=== PATIENT | female | born 1940 | race Caucasian/White ===

== ENCOUNTER 2023-05-03 14:14 | Emergency (ER) | payer MEDICARE, OTHER ==
[~2023-05-03] VITALS: Ht 157.5 cm; Wt 59.7 kg
[2023-05-03 17:07] LABS: BASOPHILS # (AUTO) 0.1 X10'3 (0-0.2); BASOPHILS % (AUTO) 0.9 % (0-1); EOSINOPHILS # (AUTO) 0.4 X10'3 (0-0.9); EOSINOPHILS % (AUTO) 4.4 % (0-6); HEMATOCRIT 42.7 % (35.0-45.0); HEMOGLOBIN 14.1 g/dl (12.0-16.0); LYMPHOCYTES # (AUTO) 2.7 X10'3 (1.1-4.8); LYMPHOCYTES % (AUTO) 33.2 % (21-51); MEAN CORPUSCULAR HEMOGLOBIN 30.7 PG (27.0-31.0); MEAN PLATELET VOLUME 7.7 FL (7.4-10.4); MONOCYTES # (AUTO) 0.6 X10'3 (0-0.9); MONOCYTES % (AUTO) 7.1 % (2-12); NEUTROPHILS # (AUTO) 4.5 X10'3 (1.8-7.7); NEUTROPHILS % (AUTO) 54.4 % (42-75); PLATELET COUNT 311 X10'3 (140-440); RED BLOOD COUNT 4.59 X10'6 (4.20-5.60); WHITE BLOOD COUNT 8.2 X10'3 (4.5-11.0)
[2023-05-03 17:30] LABS: ALANINE AMINOTRANSFERASE 27 U/L (12-78); ALBUMIN 4.2 G/DL (3.4-5.0); ALBUMIN/GLOBULIN RATIO 0.9 (1.1-1.5); ALKALINE PHOSPHATASE 83 IU/L (46-116); ANION GAP 9 (8-16); ASPARTATE AMINO TRANSFERASE 28 U/L (10-37); BILIRUBIN,TOTAL 0.3 MG/DL (0.1-1.0); BLOOD UREA NITROGEN 20 MG/DL (7-18); BUN/CREATININE RATIO 16.4 (10.0-20.0); CALCIUM 9.9 MG/DL (8.5-10.1); CHLORIDE 100 MMOL/L (99-107); CREATININE 1.22 MG/DL (0.40-0.90); GLUCOSE 105 MG/DL (70-104); POTASSIUM 4.1 MMOL/L (3.5-5.1); SODIUM 140 MMOL/L (135-145); TOTAL CARBON DIOXIDE 31.2 MMOL/L (24-32); TOTAL PROTEIN 8.8 G/DL (6.4-8.2); eCRCL 27 ML/MIN; eGFR 42 ML/MIN
[2023-05-03 20:19] LABS: BILIRUBIN,URINE NEGATIVE (Neg); CLARITY,URINE SLIGHTLY CLOUDY (Clear); COLOR,URINE YELLOW (Yellow); GLUCOSE, URINE NEGATIVE (Neg); KETONES,URINE NEGATIVE (Neg); LEUKOCYTE ESTERASE ,URINE SMALL (Neg); NITRITES, URINE POSITIVE (Neg); OCCULT BLOOD,URINE NEGATIVE (Neg); PH,URINE 5.5 (4.8-8.0); PROTEIN,URINE NEGATIVE (Neg); UROBILINOGEN,URINE 0.2 E.U/dL (0.2-1.0)
[2023-05-03 20:26] LABS: UA COLLECTION TYPE CLN CATCH MIDSTREAM
[2023-05-03 20:28] LABS: BACTERIA,URINE 4+ /HPF (Neg); MUCUS STRANDS FEW /LPF (Neg); RBC,URINE 0-2 /HPF (0-2); SQUAMOUS EPITHELIAL CELL,UR FEW /LPF (FEW)
[2023-05-03 20:29] LABS: URIC ACID CRYSTALS FEW /HPF (NEGATIVE); WBC CLUMPS,URINE FEW /HPF (NEGATIVE); YEAST FEW /HPF (NEGATIVE)
[2023-05-03] MEDS ORDERED: CefTRIAXone/D5W-Rocephin 1gm 50 ML IV ONE (21:25)
[2023-05-03] MEDS ORDERED: CEPH-585 PO (22:11)
[2023-05-03] MEDS ORDERED: AMLO5TAB5 PO (23:24)
[2023-05-03] MEDS ORDERED: amLODIPine 5mg tablet PO ONE (23:25)
[2023-05-03 23:34] VITALS: BP 193/79; PULSE 73; RESP 14; TEMP 98.2; O2SAT 98
== END 2023-05-03 23:36 | disposition home or self-care (01) ==
LOC: ER 14:15
DX: N39.0 Urinary tract infection, site not specified (principal); R42 Dizziness and giddiness; I11.0 Hypertensive heart disease with heart failure; E11.9 Type 2 diabetes mellitus without complications; Z88.8 Allergy status to other drugs, medicaments and biological substances; Z88.2 Allergy status to sulfonamides; Z79.899 Other long term (current) drug therapy
CPT/HCPCS: 36415; 70450; 71045; 80053; 81001; 84484; 85025; 86885; 86900; 86901; 87088; 93005; 96365; 99285; J0696; 87186

== ENCOUNTER 2024-12-15 09:44 | Emergency (ER) | payer MEDICARE, OTHER ==
[~2024-12-15] VITALS: Ht 154.9 cm; Wt 58.1 kg
[~2024-12-15 09:44] MED LIST: AMLO5TAB5 PO
[2024-12-15 09:58] VITALS: TEMP 98.5
[2024-12-15 10:19] LABS: MEAN PLATELET VOLUME 7.0 FL (7.4-10.4); RED CELL DISTRIBUTION WIDTH 14.1 % (11.5-14.5)
--- NOTE | 2024-12-15 10:32 | RADIOLOGY REPORT ---
EXAM: DI CHEST,SINGLE VIEW Indication: CP Technique: Single frontal view of the chest was obtained Comparison: DI CHEST,SINGLE VIEW on DOS: 05/03/23 FINDINGS: Lines and Tubes: None Lungs: No focal consolidation. Pleura: No effusion. No pneumothorax. Cardiomediastinal contours: Unremarkable. Atherosclerotic vascular calcifications of the thoracic ao rta are noted. Bones: No acute osseous abnormality. IMPRESSION: No acute cardiopulmonary disease.
--- NOTE | 2024-12-15 11:27 | Physician Documentation ---
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 The pain is constant, occasionally radiates to the bilateral shoulders, in his rated 4/10. Pain worsens with coughing. She has had a cough for a proximally one week as well. Symptoms initially began with subjective fevers/chills, sore throat, and cough. She then later developed chest pain. She visited an urgent care clinic today and was sent to the ED for workup. She denies any shortness of breath or vomiting. Medication Reconciliation Allergies: Coded Allergies: metronidazole (Unverified Allergy, Intermediate, RASH, 05/03/23) nickel (Unverified Allergy, Intermediate, RASH, 12/15/24) Sulfa (Sulfonamide Antibiotics) (Unverified Allergy, Unknown, RASH, 12/15/24) Uncoded Allergies: TAPE (Allergy, Intermediate, RASH, 05/03/23) Scheduled Amlodipine Besylate (Norvasc), 1 TAB PO DAILY Nystatin (Nystatin), 5 ML PO Q6H Past Medical History Past Medical History: Coronary Artery Disease, High Cholesterol, UTI, Diabetes Past Surgical History: angioplasty, cholecystectomy Other Past Surgical History: cardiac stents Alcohol Use: None Drug Use: none Lives with: Spouse Lives In: Home Occupation: retired Review of Systems All Other Systems at this time: Reviewed and Negative ROS As stated above in the HPI, otherwise all systems are reviewed and negative. Physical Exam Physical Exam Vital Signs: RN Vital Signs have been reviewed: Yes, Temperature: 98.5, Source: Temporal, Heart Rate: 73, Respiratory Rate: 16, BP: 152/68, Pulse Oximetry: 99, Weight: 58.100 Oxygen Flow Rate: 0 Pulse Oximetry Reflects: adequate oxygenation Physical Exam VITALS: Reviewed and as above. GENERAL: Alert, no apparent distress. HEENT: Patchy white spots on tongue and back of throat. Normocephalic, atraum atic, PERRL, EOMI, dry mucosa RESPIRATORY: Lungs clear, normal breath sounds, no respiratory distress. CHEST: No accessory muscle use, no retractions CV: Regular rate, rhythm, no edema, no murmur, No: JVD GI: Soft, non-tender, bowels sounds present, no rebound, guarding, or rigidity MUSCULOSKELETAL: No deformities, no edema SKIN: Warm and dry, no rash NEURO: Oriented x4, No motor or sensory deficit PSYCH: Normal mood and affect, no agitation Progress Progress Note 1350: Reevaluation: patient also is complaining of some white spots in her mouth. Appears to have thrush. Will prescribed medication. Results/Orders Reviewed/noted all lab results: Yes Results/Orders Vital Signs 12/15/24 12/15/24 12/15/24 12/15/24 09:58 11:45 13:58 13:58 Temp 98.5 Pulse 73 72 65 Resp 16 14 16 17 B/P (MAP) 152/68 166/72 (103) 153/66 (95) Pulse Ox 99 98 97 O2 Flow Rate 0 0 0 12/15/24 14:00 Pulse 98 Resp 16 B/P (MAP) 153/66 Pulse Ox 98 Laboratory Tests Test 12/15/24 10:11 12/15/24 11:54 12/15/24 12:53 White Blood Count 10.1 Red Blood Count 4.30 Hemoglobin 13.1 Hematocrit 38.9 Mean Corpuscular Volume 90.4 Mean Corpuscular Hemoglobin 30.5 Mean Corpuscular Hemoglobin Concent 33.7 Red Cell Distribution Width 14.1 Platelet Count 336 Mean Platelet Volume 7.0 L Neutrophils (%) (Auto) 67.4 Lymphocytes (%) (Auto) 21.1 Monocytes (%) (Auto) 6.6 Eosinophils (%) (Auto) 4.0 Basophils (%) (Auto) 0.9 Neutrophils # (Auto) 6.8 Lymphocytes # (Auto) 2.1 Monocytes # (Auto) 0.7 Eosinophils # (Auto) 0.4 Basophils # (Auto) 0.1 CBC Comment Sodium Level 140 Potassium Level 4.4 Chloride Level 101 Carbon Dioxide Level 29.8 Anion Gap 9 Blood Urea Nitrogen 14 Creatinine 1.35 H Estimated GFR/1.73 m2 37 BUN/Creatinine Ratio 10.4 Glucose Level 250 H Calcium Level 9.2 Troponin I High Sensitivity 6 7 8 Pro-B-Type Natriuretic Peptide 341 Albumin 3.2 L Chemistry Comments Troponin I High Sens Percent Delta 16 14 Troponin I Hi Sens Absolute Change 1 1 EKG/XRAY/CT/US/VASC/MRI EKG : Additional Comment 1004: EKG interpreted by myself to show NSR at a rate of 83bpm. Normal axis, nonspecific ST abnormalities, flattened T waves V5-V6. Chest X-Ray : Additional Comments EXAM: DI CHEST,SINGLE VIEW Indication: CP Technique: Single frontal view of the chest was obtained Comparison: DI CHEST,SINGLE VIEW on DOS: 05/03/23 FINDINGS: Lines and Tubes: None Lungs: No focal consolidation. Pleura: No effusion. No pneumothorax. Cardiomediastinal contours: Unremarkable. Atherosclerotic vascular calcifications of the thoracic aorta are noted. Bones: No acute osseous abnormality. IMPRESSION: No acute cardiopulmonary disease. reviewed by myself. Medical Decision Making Additional info obtained from: old records (only other visit in 2023 for UTI) Departure Time of Disposition: 13:53 Disposition: 01 HOME / SELF CARE / HOMELESS Impression: Primary Impression: Pleurisy Additional Impressions: Chest wall pain Thrush Condition: Stable Discharge Instructions: Chest Wall Pain, Pleurisy, [id number] Additional Instructions: Take medication as prescribed for thrush. Follow up with the regular doctor and shirt maker. Return to the ER for worsening chest pain, shortness of breath, fever, or other concerns. Prescriptions Nystatin (Nystatin) 100,000 Unit/Ml Oral.susp 5 ML PO Q6H for 10 Days, #200 ML Prov: DEVON HENRY MD 12/15/24 Education Educated: Patient Educated regarding: diagnosis, treatment, need for follow up Signature Scribe Signature: Scribed for Devon Henry MD by Seda Stone . 12/15/24 11:56 DEVON HENRY MD Dec 15, 2024 11:27 SEDA OGDEN Dec 15, 2024 12:34
[2024-12-15 11:46] LABS: CREATININE 1.35 MG/DL (0.40-0.90); PRO BRAIN NATRIURETIC PEPTIDE 341 PG/ML (0-450); TOTAL CARBON DIOXIDE 29.8 MMOL/L (24-32); eCRCL 23 ML/MIN; eGFR 37 ML/MIN
--- NOTE | 2024-12-15 12:33 | ELECTROCARDIOGRAPH REPORT ---
[facility] Test Date: 2024-12-15 Test Time: 10:04:31 Pat Name: ZULAY DORANTES Department: ED Room: Gender: F Speech Therapist: : 1940 Requested By: DEVON HERNANDEZ Order Number: [id number] Reading MD: Measurements Intervals [place] Rate: 83 P: 84 WI: 160 QRS: 72 QRSD: 77 T: 102 QT: 354 QTc: 416 Interpretive Statements Sinus rhythm Nonspecific T abnormalities, lateral leads Please click the below link to view image of tracing.
[2024-12-15 14:00] VITALS: BP 153/66; PULSE 98; RESP 16; O2SAT 98
[2024-12-15] MEDS ORDERED: NYST100069 PO (14:02)
== END 2024-12-15 14:14 | disposition home or self-care (01) ==
LOC: ER 09:44
DX: R07.89 Other chest pain (principal); R09.1 Pleurisy; B37.9 Candidiasis, unspecified; E11.9 Type 2 diabetes mellitus without complications; E78.00 Pure hypercholesterolemia, unspecified; I25.10 Atherosclerotic heart disease of native coronary artery without angina pectoris; I25.2 Old myocardial infarction; Z88.1 Allergy status to other antibiotic agents; Z88.2 Allergy status to sulfonamides; Z90.49 Acquired absence of other specified parts of digestive tract; Z95.5 Presence of coronary angioplasty implant and graft; Z79.899 Other long term (current) drug therapy
CPT/HCPCS: 36415; 71045; 80048; 83880; 84484; 85025; 93005; 99285